=== PATIENT | female | born 1970 | race African-American/Black ===

== ENCOUNTER 2018-06-02 22:21 | Observation (INO) | payer OTHER ==
[~2018-06-02] VITALS: Ht 152.4 cm; Wt 115.4 kg
[~2018-06-02 22:21] MED LIST: NO HOME MEDS
[2018-06-02 23:10] LABS: BASOPHIL (%) 0.7 % (0-1); BASOPHIL COUNT 0.1 K/uL (0-0.1); EOSINOPHIL (%) 2.3 % (0-5); EOSINOPHIL COUNT 0.2 K/uL (0-0.3); HEMATOCRIT 35.8 % (36.0-46.0); HEMOGLOBIN 11.3 G/DL (11.9-15.5); IMMATURE GRANULOCYTE (%) 0.2 % (0.0-0.7); LYMPHOCYTE (%) 48.5 % (15-42); MCH 27.5 PG (29.0-34.0); MCHC 31.6 G/DL (30.0-36.0); MCV 87.1 FL (83-99); MONOCYTE (%) 10.8 % (3-12); MONOCYTE COUNT 0.9 K/uL (0-0.8); NEUTROPHIL (%) 37.5 % (45-76); NEUTROPHIL COUNT 3.1 K/uL (1.8-6.4); PLATELET COUNT 254 K/uL (156-360); RBC DIS.WIDTH-CV 14.2 % (11.8-14.6); RBC DIS.WIDTH-SD 45.2 % (39-53); RED BLOOD COUNT 4.11 M/uL (3.80-5.20); WHITE BLOOD COUNT 8.2 K/uL (4.1-10.2)
[2018-06-02 23:19] LABS: CHLORIDE 107 mEq/L (99-109); POTASSIUM 4.1 mEq/L (3.7-5.4); SODIUM 142 mEq/L (136-147)
[2018-06-02 23:21] LABS: GLUCOSE 98 mg/dL (70-99); TOTAL PROTEIN 7.7 g/dL (6.4-8.3)
[2018-06-02 23:23] LABS: TOTAL BILIRUBIN 0.3 mg/dL (0.0-1.0)
[2018-06-02 23:24] LABS: ALKALINE PHOSPHATASE 76 IU/L (3-129); SERUM ETHYL ALCOHOL < 10 mg/dL
[2018-06-02 23:25] LABS: CREATININE 0.9 mg/dL (0.6-1.3); GFR ESTIMATE (CALCULATED) > 59 mL/min/
[2018-06-02 23:26] LABS: AST (GOT) 19 IU/L (2-34); UREA NITROGEN (BUN) 17 mg/dL (9-23)
[2018-06-02 23:28] LABS: ALT (GPT) 16 IU/L (3-49); LIPASE 117 U/L (1.0-51.0)
[2018-06-03] MEDS ORDERED: VITAMIN D2000 UNI1 PO (00:18)
[2018-06-03] MEDS ORDERED: IRON18 MG PO (00:18)
[2018-06-03] MEDS ORDERED: COD LIVER OIL1 EACH PO (00:19)
[2018-06-03] MEDS ORDERED: BIOTIN800 MCG PO (00:20)
[2018-06-03] MEDS ORDERED: ADVIL,NUPRIN,M200 MG PO (00:21)
[2018-06-03] MEDS ORDERED: MULTIVITAM9 MG/15 M1 PO (00:22)
[2018-06-03 01:30] VITALS: BP 157/80
[2018-06-03 07:25] VITALS: BP 145/75
[2018-06-03 11:36] VITALS: BP 140/66
== END 2018-06-03 16:33 | disposition home or self-care (01) ==
LOC: EME 22:21 → EDOF 23:52 → 4SOUTH 23:52 → ENRESERV 23:59 → 4SOUTH 06-03 01:19
PROVIDERS: Emergency Medicine
DX: T54.1X1A Toxic effect of other corrosive organic compounds, accidental (unintentional), initial encounter (principal); J02.9 Acute pharyngitis, unspecified; R12 Heartburn; Z91.010 Allergy to peanuts
CPT/HCPCS: 71045; 80053; 83690; 85025; 93005; 99281; 99285; G0378; G0480; J1644; J7030